=== PATIENT | female | born 1980 | race Caucasian/White ===

== ENCOUNTER → 2019-01-07 | Day surgery (SDC) | payer BC ==
[~2019-01-07] MED LIST: LIDOCAINE 1% INJ-PF (10 MG/ML) 30 ML SDV ONE
--- NOTE | 2019-01-11 13:54 | WOMENS IMAGING REPORT ---
EXAM DESCRIPTION: U/S BREAST BX; LEFT DIAGNOSTIC MAMMO W/CAD COMPLETED DATE/TIME: 01/10/2019 8:42 am REASON FOR STUDY: N63.20 UNSPECIFIED LUMP IN THE LEFT BREAST, UNSPECIFIED QUADRANT; N63.20 S/P US LE FT BREAST BX N63.20 UNSPECIFIED LUMP IN THE LEFT BREAST, UNSPECIFIED QUAD COMPARISON: None. TECHNIQUE: The procedure was discussed with the patient and the patient agreed to proceed. The patient was scanned and the area of interest in the 10 o'clock position 5 cm from the nipple of t he left breast was localized. This correlates with the area of concern on prior imaging studies. Thi s area was targeted for ultrasound-guided core biopsy. After sterile skin prep and 3 mL local lidocaine 1% for skin and deep tissue anesthesia, a 14 gauge c oaxial core biopsy needle was used to obtain several cores of tissue from the lesion. Under ultrasou nd guidance, a ribbon clip was placed in the areas sampled. There were no immediate post-procedure c omplications. MAMMOGRAM: Post-procedure two view mammogram was acquired in the digital mammogram suite. The clip wa s in the expected location. No significant hematoma. Pathology yields a diagnosis of fibroadenoma Pathology is concordant LIMITATIONS: SSV FINDINGS: Ultrasound guided breast biopsy as described above. POST PROCEDURE MAMMOGRAMS FOR MARKER PLACEMENT: Yes IMPRESSION: ULTRASOUND-GUIDED CORE BIOPSY OF THE LEFT BREAST YIELDS A DIAGNOSIS OF BENIGN FIBROADEN WHITNEY BI-RADS 2, BENIGN FINDINGS. PATIENT SHOULD RESUME YEARLY BILATERAL MAMMOGRAPHIC SCREENING/TOMOSYNTHESIS IN DECEMBER 2019 COMMENT: COMMUNICATION: RESULTS COMMUNICATED TO THE PATIENT, 1330 HOURS 01/10/2019. SHE UNDERSTANDS T HIS IS A BENIGN DIAGNOSIS, AND THAT SHE SHOULD RETURN TO SCREENING IN DECEMBER 2019. Patient medication list reviewed: Yes- Quality ID# [id number]:Eligible professional attests to documenting i n the medical record they obtained, updated, or reviewed the patient's current medications. TECHNICAL DOCUMENTATION: JOB ID: [id number] [employer]- All Rights Reserved Reading location - IP/workstation name: [email or web address]
== END ==
LOC: WI 12:31
PROVIDERS: ATTEND Physician Assistant
DX: D24.2 Benign neoplasm of left breast (principal)
CPT/HCPCS: 88305 ×2; 19083; 77065; J3490

== ENCOUNTER → 2020-04-02 | Outpatient (CLI) | payer BC ==
--- NOTE | 2020-04-02 12:36 | RADIOLOGY REPORT (SQ) ---
EXAM DESCRIPTION: MRI LT LOWER EXTREMITY WITHOUT IMAGES COMPLETED DATE/TIME: 04/02/2020 12:02 pm REASON FOR STUDY: ENTHESOPATHY, UNSPECIFIED (M77.9) M77.9 ENTHESOPATHY, UNSPECIFIED COMPARISON: None. TECHNIQUE: Proton density, T1 and gradient noncontrast multiplanar imaging of the left foot. LIMITATIONS: None. FINDINGS: MARROW SIGNAL: Normal, homogeneous marrow signal. JOINT EFFUSION: There is a well circumscribed lobular fluid collection involving the talonavicular elle int extending into the medial and lateral soft tissues to include the tarsal tunnel. SINUS TARSI: Apparent ganglion cyst associated with the talonavicular joint PLANTAR FASCIA: The posterior plantar fascia is not included in the imaged field of view. TARSAL, TARSOMETATARSAL AND TOE ARTICULATIONS: Normal. SOFT TISSUES: Edema is seen throughout the plantar musculature without focal tear or fluid collection . Subcutaneous edema is seen of the dorsal lateral foot. OTHER: IMPRESSION: While only partially imaged on today's examination, constellation of findings suggests t arsal tunnel syndrome on the basis of a talonavicular ganglion cyst extending into the tarsal sinus. TECHNICAL DOCUMENTATION: JOB ID: [id number] [email or web address]- All Rights Reserved Reading location - IP/workstation name: [email or web address]
== END ==
LOC: RAD 11:16
PROVIDERS: ATTEND Physician Assistant
DX: M67.472 Ganglion, left ankle and foot (principal)

== ENCOUNTER → 2020-05-04 | Outpatient (CLI) | payer BC | LOC: WI 09:45 | PROVIDERS: ATTEND Physician Assistant | DX: D24.2 Benign neoplasm of left breast (principal) | CPT/HCPCS: 77066; G0279; 77062 ==